=== PATIENT | male | born 1985 | race African-American/Black ===

== ENCOUNTER 2018-12-20 17:08 | Emergency (ER) | payer OTHER ==
[~2018-12-20] VITALS: Ht 177.8 cm; Wt 86.8 kg
[2018-12-20 17:13] VITALS: BP 112/69
[2018-12-20] MEDS ORDERED: DEXAMETHASONE 4 MG TABLET PO STA (17:49)
[2018-12-20] MEDS ORDERED: DEXAMETHASONE 4 MG TABLET ONE (17:51)
[2018-12-20] MEDS ORDERED: BENZONATATE 100 MG CAPSULE ONE (17:52)
[2018-12-20] MEDS ORDERED: BENZONATATE 100 MG CAPSULE PO ONE (18:00)
--- NOTE | 2018-12-20 18:17 | NUR ---
Patient/Caregiver given discharge instructions and they have confirmed that they understand the instructions. Patient ambulatory with steady gait.
== END 2018-12-20 18:37 | disposition home or self-care (01) ==
LOC: ED 18:34
DX: J20.8 Acute bronchitis due to other specified organisms (principal); Z88.0 Allergy status to penicillin
CPT/HCPCS: 87081; 87147; 87880; 99283

== ENCOUNTER 2019-04-19 18:33 | Emergency (ER) | payer OTHER ==
[~2019-04-19] VITALS: Ht 177.8 cm; Wt 86.3 kg
[2019-04-19 18:36] VITALS: BP 135/72
[2019-04-19] MEDS ORDERED: ONDANSETRON ODT 4 MG ONE (19:22)
[2019-04-19] MEDS ORDERED: ONDANSETRON ODT 4 MG PO ONE (19:30)
== END 2019-04-19 20:33 | disposition home or self-care (01) ==
LOC: ED 20:15
DX: S06.329A Contusion and laceration of left cerebrum with loss of consciousness of unspecified duration, initial encounter (principal); Y99.8 Other external cause status; W51.XXXA Accidental striking against or bumped into by another person, initial encounter; Y93.61 Activity, american tackle football; Y92.328 Other athletic field as the place of occurrence of the external cause
CPT/HCPCS: 70450; 99284; Q0162